=== PATIENT | female | born 1955 | race Caucasian/White ===

== ENCOUNTER 2019-05-02 19:08 | Emergency (ER) | payer MEDICARE, BC ==
[2019-05-02] MEDS ORDERED: LIDOCAINE 4%/TETRACAINE 0.5%/EPI 0.18% 5 ML TOPICAL SOLN TOP ONE ×2 (19:32→23:10)
[2019-05-02] MEDS ORDERED: ACETAMINOPHEN 325 MG TABLET PO ONE (19:32)
--- NOTE | 2019-05-02 19:34 | ER Document Report ---
ED Medical Screen (RME) - General Chief Complaint: Fall Injury Stated Complaint: FALL/LACERATION TO LEFT SIDE OF HEAD Time Seen by Provider: 05/02/19 19:21 Mode of Arrival: Ambulatory Information source: Patient Notes: Patient states that she was going over a public restroom and her foot slipped out from under her. Patient states she fell hitting her head on the wall. Patient complains of neck discomfort and left-sided headache pain. Patient with 1 cm-laceration to left scalp area. I have greeted and performed a rapid initial assessment of this patient. A comprehensive ED assessment and evaluation of the patient, analysis of test results and completion of the medical decision making process will be conducted by additional ED providers. TRAVEL OUTSIDE OF THE [place] IN LAST 30 DAYS: No - Related Data Allergies/Adverse Reactions: acetaminophen [From Percocet] Allergy (Verified 05/02/19 19:10) alprazolam [From Xanax] Allergy (Verified 05/02/19 19:10) oxycodone [From Percocet] Allergy (Verified 05/02/19 19:10) povidone-iodine [From Betadine] Allergy (Verified 05/02/19 19:10) soap [From Betadine] Allergy (Verified 05/02/19 19:10) Past Medical History - Social History Chew tobacco use (# tins/day): No Frequency of alcohol use: None Drug Abuse: None Endocrine Medical History: Reports: Hx Diabetes Mellitus Type 2 Renal/ Medical History: Denies: Hx Peritoneal Dialysis Physical Exam - Vital signs Vitals: Temp Pulse Resp BP Pulse Ox 98.3 F 95 20 142/83 H 96 05/02/19 19:16 05/02/19 19:16 05/02/19 19:16 05/02/19 19:16 05/02/19 19:16 - Skin Skin irregularity: Laceration - Left temporal scalp Course - Vital Signs Vital signs: Temp Pulse Resp BP Pulse Ox 98.3 F 95 20 142/83 H 96 05/02/19 19:16 05/02/19 19:16 05/02/19 19:16 05/02/19 19:16 05/02/19 19:16
--- NOTE | 2019-05-02 21:38 | RADIOLOGY REPORT (SQ) ---
EXAM DESCRIPTION: CT HEAD WITHOUT IV CONTRAST COMPLETED DATE/TME: 05/02/2019 19:31 CLINICAL HISTORY: fall, head injury COMPARISON: None Available. TECHNIQUE: Contiguous axial images of the brain were obtained without the administration of intravenous contrast. This exam was performed according to our departmental dose-optimization program, which includes automated exposure control, adjustment of the mA and/or kV according to patient size and/or use of iterative reconstruction technique. FINDINGS: There is no acute intracranial hemorrhage or mass effect. Ventricular system is within normal limits. There is adequate ford-white matter differentiation. There is no skull fracture. The visualized paranasal sinuses and mastoid air cells are within normal limits. IMPRESSION: No acute intracranial abnormalities.
--- NOTE | 2019-05-02 22:17 | RADIOLOGY REPORT (SQ) ---
EXAM DESCRIPTION: CT CERVICAL SPINE WITHOUT IV CONTRAST EXAM DESCRIPTION: CLINICAL HISTORY: fall, head injury COMPARISON: None Available TECHNIQUE: Contiguous axial images of the cervical spine were obtained without the administration of intravenous contrast followed by reconstruction images. This exam was performed according to our departmental dose-optimization program, which includes automated exposure control, adjustment of the mA and/or kV according to patient size and/or use of iterative reconstruction technique. FINDINGS: There is no acute fracture or subluxation. Prevertebral soft tissues are within normal limits. There is intervertebral disc space narrowing and osteophytic formation more pronounced at C4-C5, C5-C6 and C6-C7. There is bilateral neural foramina narrowing at C4-C5 and C5-C6. There is a 1.1 cm right thyroid nodule. As per [facility] best practice protocol, no further follow-up recommended. IMPRESSION: No acute fracture or subluxation. Degenerative changes.
--- NOTE | 2019-05-03 00:31 | ER Document Report ---
Entered by MELVA SKY SCRIBE 05/02/19 [id number] Acting as scribe for:SILVINA THOMAS DO ED General - General Chief Complaint: Fall Injury Stated Complaint: FALL/LACERATION TO LEFT SIDE OF HEAD Time Seen by Provider: 05/02/19 19:21 Mode of Arrival: Ambulatory Information source: Patient Notes: Patient is a 63 year old female with type 2 diabetes presents to the emergency department complaining of a head pain and a laceration secondary a mechanical fall. Patient states she was hovering over a public toilet to urinate when she slipped on a mat and hit the left side of her head. She Patient states she has had a throbbing headache and some nausea since the fall. She reports being able to ambulate after the fall. She does report fecal incontinence after the fall bu t states this is not uncommon due to her metformin use. She denies any vomiting, loss of consciousness, weakness, numbness or tingling sensations or being on blood thinners. Patient is currently on Metformin. TRAVEL OUTSIDE OF THE [place] IN LAST 30 DAYS: No - Related Data Allergies/Adverse Reactions: acetaminophen [From Percocet] Allergy (Verified 05/02/19 19:10) alprazolam [From Xanax] Allergy (Verified 05/02/19 19:10) oxycodone [From Percocet] Allergy (Verified 05/02/19 19:10) povidone-iodine [From Betadine] Allergy (Verified 05/02/19 19:10) soap [From Betadine] Allergy (Verified 05/02/19 19:10) Past Medical History - General Information source: Patient - Social History Smoking Status: Never Smoker Cigarette use (# per day): No Chew tobacco use (# tins/day): No Smoking Education Provided: No Frequency of alcohol use: None Drug Abuse: None Family History: Reviewed & Not Pertinent Patient has suicidal ideation: No Patient has homicidal ideation: No Endocrine Medical History: Reports: Hx Diabetes Mellitus Type 2 Review of Systems - Review of Systems Constitutional: No symptoms reported EENT: No symptoms reported Cardiovascular: No symptoms reported Respiratory: No symptoms reported Gastrointestinal: No symptoms reported Genitourinary: No symptoms reported Female Genitourinary: No symptoms reported Musculoskeletal: See HPI Skin: See HPI Hematologic/Lymphatic: No symptoms reported Neurological/Psychological: See HPI, Headaches -: Yes All other systems reviewed and negative Physical Exam - Vital signs Vitals: Temp Pulse Resp BP Pulse Ox 98.3 F 95 20 142/83 H 96 05/02/19 19:16 05/02/19 19:16 05/02/19 19:16 05/02/19 19:16 05/02/19 19:16 - Notes Notes: GENERAL: Alert, interacts well. No acute distress. HEAD: Normocephalic. 1 cm linear non-gaping laceration over the left parietal scalp, several centimeters above the left ear, no active bleeding, step-offs or deformities. There is a small hematoma. No facial droop. EYES: Pupils equal, round, and reactive to light. Extraocular movements intact. ENT: Oral mucosa moist, tongue midline. TMs intact, no hemotympanum. NECK: Full range of motion. Supple. Trachea midline. No midline bony tenderness to palpation, no step-offs or deformities. LUNGS: No respiratory distress. EXTREMITIES: Moves all 4 extremities spontaneously. NEUROLOGICAL: Alert and oriented x3. Normal speech. Chin to chest testing intact. PSYCH: Normal affect, normal mood. SKIN: Warm, dry. Course - Re-evaluation Re-evalutation: 05/03/19 00:29 CT scan of the neck reveals some arthritis and chronic changes but nothing acute, CT scan of the head was ordered based off the patient's age and mechanism of the fall, there is no evidence of intracranial hemorrhage or skull fracture. Wound was cleaned and numbed using the left, one single staple was applied. Patient will be discharged home, given closed head injury precautions, recommended to have staple removed in 5 to 7 days. - Vital Signs Vital signs: Temp Pulse Resp BP Pulse Ox 98.3 F 95 20 142/83 H 96 05/02/19 19:16 05/02/19 19:16 05/02/19 19:16 05/02/19 19:16 05/02/19 19:16 Procedures - Laceration/Wound Repair Left parietal scalp Wound length (cm): 1 Wound's Depth, Shape: Linear Laceration pre-procedure: Shur-Clens applied Anesthetic type: Other - LET Wound explored: Clean, No foreign body removed Wound Repaired With: [place] Number of Sutures: 1 Layer Closure?: No Post-procedure NV exam normal: Yes Complications: No Discharge - Discharge Clinical Impression: Closed head injury Qualifiers: Encounter type: initial encounter Qualified Code(s): S09.90XA - Unspecified injury of head, initial encounter Scalp laceration Qualifiers: Encounter type: initial encounter Qualified Code(s): S01.01XA - Laceration without foreign body of scalp, initial encounter Condition: Stable Disposition: HOME, SELF-CARE Additional Instructions: Please have the staple removed in 5 to 7 days. You may return to the emergency department or go to an urgent care or see her primary care physician. Concussion You have suffered a concussion -- a temporary loss of certain brain functions due to a mild brain injury. The recovery is usually rapid and complete. The temporary problems occurring with a concussion can include loss of consciousness, dizziness, nausea, vomiting, and confusion. Repeat concussions can cause brain damage. In the future, avoid activities that will cause a blow to your head. Wear a helmet for sports such as snowboarding, biking, or skating. It's important that someone be with you for the first 24 hours. During this time, do not exercise or drive a vehicle. Do not take any pain medication stronger than acetaminophen unless prescribed by the physician. Any significant changes should be reported immediately to the physician. Signs of a problem may include: (1) Mental confusion (2) Incoordination or staggering (3) Repeated or forceful vomiting (4) Clear or bloody drainage from ear, mouth, or nose (5) Severe headache, not relieved by acetaminophen or prescribed pain medication (6) Failure to improve in 24 hours I personally performed the services described in the documentation, reviewed and edited the documentation which was dictated to the scribe in my presence, and it accurately records my words and actions.
[2019-05-03 01:05] VITALS: BP 152/73
== END 2019-05-03 01:05 | disposition home or self-care (01) ==
LOC: ER 19:08
DX: S01.01XA Laceration without foreign body of scalp, initial encounter (principal); R51 Headache; W01.198A Fall on same level from slipping, tripping and stumbling with subsequent striking against other object, initial encounter; Y93.89 Activity, other specified; Y92.830 Public park as the place of occurrence of the external cause; R15.9 Full incontinence of feces; R11.0 Nausea; M47.9 Spondylosis, unspecified; E11.9 Type 2 diabetes mellitus without complications; Z79.84 Long term (current) use of oral hypoglycemic drugs; Z88.6 Allergy status to analgesic agent; Z88.5 Allergy status to narcotic agent; Z88.8 Allergy status to other drugs, medicaments and biological substances; Z88.3 Allergy status to other anti-infective agents
CPT/HCPCS: 99283; 70450; 72125; 12001; A9270; J3490